=== PATIENT | female | born 1960 | race African-American/Black ===

== ENCOUNTER 2017-03-04 17:38 | Emergency (ER) | payer OTHER ==
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
--- NOTE | ~2017-03-04 | EKG ---
PATIENT: NEELA SCHMITZ UNIT #: [id number] Ventricular Rate: 70 BPM Atrial Rate: 70 BPM P-R Interval: 190 ms QRS Duration: 76 ms Q-T Interval: 396 ms QTC Calculation(Bezet): 427 ms P [place]: 53 degrees Calculated R [place]: 53 degrees Calculated T [place]: 25 degrees Diagnosis Line: 5 Normal sinus rhythm Diagnosis Line: Possible Left atrial enlargement Diagnosis Line: Borderline ECG Diagnosis Line: When compared with ECG of 09-JUN-2016 14:04, Diagnosis Line: No significant change was found Diagnosis Line: Confirmed by JOHNNY MAHONEY MD ([id number]) on Diagnosis Line: 03/11/2017 7:16:38 AM INTERPRETING MD: SUE
[~2017-03-04 17:38] MED LIST: ACETAMINOPHEN PO; ACETAMINOPHEN650 M3 PO; ALPRAZOLAM PO; ASMANEX0.135 G1; ATENOLOL PO; CLARITIN10 M3 PO; LISINOPRIL10 MG PO; NEXIUM PO; PRILOSEC PO; PROAIR HFA8.5 GM INH; VITAMIN D-32000 UNI2 PO
== END 2017-03-04 19:11 | disposition home or self-care (01) ==
LOC: SED 17:38
DX: S16.1XXA Strain of muscle, fascia and tendon at neck level, initial encounter (principal); S39.012A Strain of muscle, fascia and tendon of lower back, initial encounter; I10 Essential (primary) hypertension; F17.210 Nicotine dependence, cigarettes, uncomplicated; Z79.899 Other long term (current) drug therapy; Z88.8 Allergy status to other drugs, medicaments and biological substances; Z88.1 Allergy status to other antibiotic agents; V49.50XA Passenger injured in collision with unspecified motor vehicles in traffic accident, initial encounter; Y92.410 Unspecified street and highway as the place of occurrence of the external cause
CPT/HCPCS: 71020; 72040; 72100; 93005; 99284